=== PATIENT | male | born 1990 | race Caucasian/White ===

== ENCOUNTER 2020-04-06 18:53 | Emergency (ER) | payer BC, SELFPAY ==
--- NOTE | ~2020-04-06 | CT_ITS ---
EXAMINATION: CT abdomen pelvis w con DATE: 04/06/2020 22:08 INDICATION: Abdomen pain TECHNIQUE: Computed tomography (CT) of the abdomen and pelvis was performed without intravenous contr ast. The dose-length product was 693.72 mGy-cm. Automated exposure control and iterative reconstructi on technique were employed. COMPARISON: None. FINDINGS: Lung bases unremarkable. Heart size normal. No significant pleural or pericardial effusion. The liver, spleen, pancreas, adrenal glands and kidneys are unremarkable. Gallbladder is contracted. Nonobstructive bowel gas pattern. No evidence for appendicitis or diverticulitis. No significant vas cular abnormality. No lymphadenopathy. No acute osseous abnormality. There is mild thickening of the distal esophagus, suspicious for esophagitis. IMPRESSION: 1. Mild thickening of the distal esophagus, suspicious for esophagitis. 2: No acute abnormality of the abdomen. Reviewed, dictated and finalized at location A.
[2020-04-06 19:14] VITALS: BP 138/77; PULSE 85; RESP 20; TEMP 37.3; O2SAT 99
[2020-04-06] MEDS: SODIUM CHLORIDE 0.9% IV 1,000 ML 999 ML IV CONT ×2 (19:38→19:40)
[2020-04-06 19:44] LABS: Basophils Absolute Auto 0.1 K/mm3 (0.0-0.1); Basophils Percent Auto 0.8 % (0.2-1.2); Eosinophils Absolute Auto 0.1 K/mm3 (0-0.3); Eosinophils Percent Auto 1.3 % (0-4.4); Hematocrit 46.1 % (42.0-52.0); Hemoglobin 15.8 g/dL (14.0-18.0); Immature Granulocyte Absolute 0.02 K/mm3 (0.00-0.031); Immature Granulocyte Percent A 0.3 % (0-0.5); Lymphocytes Absolute Auto 1.53 K/mm3 (0.9-3.2); Lymphocytes Percent Auto 25.7 % (18.3-44.2); Mean Corpuscular HGB Conc 34.3 g/dl (32-36); Mean Corpuscular Hemoglobin 31.3 pg (26-34); Mean Corpuscular Volume 91.3 fl (80-100); Mean Platelet Volume 10.4 fl (7.4-10.4); Monocytes Absolute Auto 0.9 K/mm3 (0.1-0.6); Monocytes Percent Auto 15.1 % (2.6-8.5); Neutrophils Absolute Auto 3.4 K/mm3 (1.3-6.7); Neutrophils Percent Auto 56.8 % (45.5-73.1); Platelet Count Result 191 k/mm3 (150-375); Red Blood Count 5.05 M/mm3 (4.6-6.20); Red Cell Distribution Width 13.9 % (11.5-14.5)
[2020-04-06 19:56] LABS: Blood Urea Nitrogen 11 mg/dL (9-20); Calcium 8.4 mg/dL (8.4-10.2); Carbon Dioxide 34 mmol/L (22-30); Chloride 95 mmol/L (98-107); Creatine Kinase 77 U/L (55-170); Estimated CRCL calculation 119 ml/min; Estimated Glomerular Filt Rate > 60; Glucose 96 mg/dL (75-110); Magnesium 1.9 mg/dL (1.6-2.3); Sodium 136 mmol/L (137-145)
--- NOTE | 2020-04-06 20:28 | ED.GENADULT ---
HPI - General Adult General Chief complaint: Environmental Exposure <Saul De La Rosa PA-C - Last Filed: 04/07/20 15:47> Stated complaint: N/V MUSCLE CRAMPS, HEAT EXPOSURE <Saul De La Rosa PA-C - Last Filed: 04/07/20 15:47> Time Seen by Provider: 04/06/20 18:59 <Saul De La Rosa PA-C - Last Filed: 04/07/20 15:47> Source: patient <Saul De La Rosa PA-C - Last Filed: 04/07/20 15:47> Mode of arrival: ambulatory <Saul De La Rosa PA-C - Last Filed: 04/07/20 15:47> Limitations: no limitations <Saul De La Rosa PA-C - Last Filed: 04/07/20 15:47> History of Present Illness HPI narrative: Patient is a 29-year-old male who presents with several days duration of chills sweats after working in extreme heat has had some intermittent nausea and vomiting. Has been drinking Pedialyte but continues to work in the heat and has not taken days off. Patient on arrival today notes that his urine became very dark and was concerned for dehydration. Patient denies any URI symptoms. Patient denies any fever chills at this time sick contacts or other complaints. Patient is visiting from out of town while currently working <Saul De La Rosa PA-C - Last Filed: 04/07/20 15:47> Related Data Home medications: Home Medications Medication Instructions Recorded Confirmed No Home Medications 04/07/20 04/07/20 <Saul De La Rosa PA-C - Last Filed: 04/07/20 15:47> Allergies/adverse reactions: Allergies Allergy/AdvReac Type Severity Reaction Status Date / Time No Known Allergies Allergy Verified 04/07/20 15:36 <Saul De La Rosa PA-C - Last Filed: 04/07/20 15:47> Review of Systems Review of Systems: All systems reviewed & are unremarkable except as noted in HPI and below <Saul De La Rosa PA-C - Last Filed: 04/07/20 15:47> [facility] Past Medical History Medical History: Medical History (Updated 04/07/20 @ 17:38 by Saul De La Rosa PA-C) Hepatitis <Saul De La Rosa PA-C - Last Filed: 04/07/20 15:47> Social History Social History: Social History (Updated 04/07/20 @ 15:48 by Saul De La Rosa PA-C) Smoking status: Never smoker Alcohol intake: unknown Gender identity (if verbalized by the patient): Male <Saul De La Rosa PA-C - Last Filed: 04/07/20 15:47> Exam Narrative: Exam Narrative: GENERAL: Well-appearing, well-nourished, and in no acute distress. HEAD: Normocephalic, atraumatic. EYES: PERRLA and EOMI. ENT: Nares clear, no rhinorrhea or epistaxis. Mucous membranes moist. Oropharynx without tonsillar hypertrophy exudate or other lesions. CHEST: Clear to auscultation. No respiratory distress. No wheezes rales or rhonchi HEART: Regular rate and rhythm. No murmur heard. Normal peripheral pulses. ABDOMEN: Soft, nontender, nondistended EXTREMITIES: Normal range of motion. No edema. SKIN: Warm, dry, no rash. NEURO: No focal deficits. Alert and oriented x3. Cranial nerves II through XII grossly intact PSYCH: Normal mood and affect. <Saul De La Rosa PA-C - Last Filed: 04/07/20 15:47> Course Course Emergency Course: Patient in the room in no distress resting comfortably tolerating p.o. intake feeling better after receiving multiple liters of fluid. Patient found to have hepatitis noting history of hepatitis from tattoos in the past while in [place]. Patient notes he has not had treatment was initially thought that the patient had heat exhaustion given the story that he was telling but is more clear that it is likely has hepatitis may be coupled with his heat exposure. Patient will be admitted pending CAT scan which will be followed by my attending Dr. Cuevas <Saul De La Rosa PA-C - Last Filed: 04/07/20 15:47> Consultations Consultation #1: Discussed case with barrel assembler Dr. Stuart who will consult on patient and notes that the patient can stay under his care. <Saul De La Rosa PA-C - Last Filed: 04/07/20 15:47> Date: 03/28
[2020-04-06 20:57] VITALS: BP 125/73; PULSE 83; RESP 20; O2SAT 97
[2020-04-06 21:09] LABS: Add Urine Microscopic? YES; Appearance Urine Clear (Clear); Bacteria Urine Trace /hpf; Bilirubin Urine 2+ (Negative); Blood Urine Negative (Negative); Color Urine Amber (Yellow); Glucose Urine UA Negative (Negative); Ketones Urine Trace mg/dL (Negative); Leukocyte Esterase Ur Negative LEU/UL (Negative); Mucus Urine Heavy /lpf; Nitrate Urine Negative (Negative); Protein Urine 1+ mg/dL (Negative); RBC Urine 0-2 /hpf (0-2); Specific Grav Ur 1.027 (1.001-1.035); Squamous Epithelial Cell Urine Rare /hpf (Few)
--- NOTE | 2020-04-06 21:20 | PC.NURSE ---
Giovani in lab aware of add ons.
[2020-04-06 21:43] LABS: Albumin Level 3.7 g/dL (3.5-5.1); Alkaline Phosphatase 231 U/L (38-126); Bilirubin Direct 4.8 mg/dL (0-0.3); Bilirubin,Total 8.2 mg/dL (0.2-1.3); Lipase 38 U/L (23-300)
[2020-04-06 22:00] LABS: Alanine Aminotransferase > 3750 U/L (4-50); Aspartate Amino Transferase 3312 U/L (17-59)
[2020-04-06 22:37] VITALS: BP 132/102; PULSE 85; RESP 20; O2SAT 97
[2020-04-06 22:46] LABS: Hepatitis B Surface Antigen Negative (Negative)
[2020-04-06 22:52] LABS: HAV RESULT Reactive (Negative); Hepatitis B Core IgM Result Negative (Negative)
[2020-04-06 23:34] LABS: Hepatitis C Virus Antibody Reactive (Negative)
[2020-04-06 23:35] VITALS: BP 138/79; PULSE 80; RESP 19; TEMP 36.8; O2SAT 100
--- NOTE | 2020-04-07 15:47 | ED.GENADULT ---
HPI - General Adult General Chief complaint: Environmental Exposure <Saul De La Rosa PA-C - Last Filed: 04/07/20 17:38> Stated complaint: N/V MUSCLE CRAMPS, HEAT EXPOSURE <Saul De La Rosa PA-C - Last Filed: 04/07/20 17:38> Time Seen by Provider: 04/06/20 18:59 <Saul De La Rosa PA-C - Last Filed: 04/07/20 17:38> Source: patient <Saul De La Rosa PA-C - Last Filed: 04/07/20 17:38> Mode of arrival: ambulatory <Saul De La Rosa PA-C - Last Filed: 04/07/20 17:38> Limitations: no limitations <Saul De La Rosa PA-C - Last Filed: 04/07/20 17:38> History of Present Illness HPI narrative: Patient is a 29-year-old male who presents to emergency department for evaluation after presenting last night found to have hepatitis acutely patient notes history of hepatitis patient went home notes that he has been fine throughout the night without any fevers or vomiting. Patient presents denying any pain and was requested to return for further evaluation patient. Patient on arrival resting comfortably in the room in no distress <Saul De La Rosa PA-C - Last Filed: 04/07/20 17:38> Related Data Home medications: Home Medications Medication Instructions Recorded Confirmed No Home Medications 04/07/20 04/07/20 <Saul De La Rosa PA-C - Last Filed: 04/07/20 17:38> Allergies/adverse reactions: Allergies Allergy/AdvReac Type Severity Reaction Status Date / Time No Known Allergies Allergy Verified 04/07/20 15:36 <Saul De La Rosa PA-C - Last Filed: 04/07/20 17:38> Review of Systems Review of Systems: All systems reviewed & are unremarkable except as noted in HPI and below <Saul De La Rosa PA-C - Last Filed: 04/07/20 17:38> [facility] Past Medical History Medical History: Medical History (Updated 04/07/20 @ 17:38 by Saul De La Rosa PA-C) Hepatitis <Saul De La Rosa PA-C - Last Filed: 04/07/20 17:38> Social History Social History: Social History (Updated 04/07/20 @ 15:48 by Saul De La Rosa PA-C) Smoking status: Never smoker Alcohol intake: unknown Gender identity (if verbalized by the patient): Male <Saul De La Rosa PA-C - Last Filed: 04/07/20 17:38> Exam Narrative: Exam Narrative: GENERAL: Well-appearing, well-nourished, and in no acute distress. HEAD: Normocephalic, atraumatic. EYES: PERRLA and EOMI. ENT: Nares clear, no rhinorrhea or epistaxis. Mucous membranes moist. Oropharynx without tonsillar hypertrophy exudate or other lesions. NECK: Supple. No adenopathy or masses. CHEST: Clear to auscultation. No respiratory distress. No wheezes rales or rhonchi HEART: Regular rate and rhythm. No murmur heard. Normal peripheral pulses. ABDOMEN: Soft, nontender, nondistended EXTREMITIES: Normal range of motion. No edema. SKIN: Warm, dry, no rash. NEURO: No focal deficits. Alert and oriented x3. Cranial nerves II through XII grossly intact. PSYCH: Normal mood and affect. <Saul De La Rosa PA-C - Last Filed: 04/07/20 17:38> Course Course Emergency Course: Patient in the room in no distress aware of case findings treatment plan and diagnosis <JOSELINE Flores Last Filed: 04/07/20 17:38> Consultations Consultation #1: Discussed case with hospitalist and chipping machine operator who have agreed to accept the patient with no further interventions at this time <Saul De La Rosa PA-C - Last Filed: 04/07/20 17:38> Date: 04/07/20 <JOSELINE Flores Last Filed: 04/07/20 17:38> Time: 17:38 <Saul De La Rosa PA-C - Last Filed: 04/07/20 17:38> Additional Consultation(s): <JOSELINE Flores Last Filed: 04/07/20 17:38> Vital Signs Vital signs: Vital Signs Temperature 99.1 F 04/06/20 19:14 Pulse Rate 85 04/06/20 19:14 Respiratory Rate 20 04/06/20 19:14 Blood Pressure 138/77 04/06/20 19:14 Pulse Oximetry 99 04/06/20 19:14 Temperature 98.3 F 04/06/20 23:35 Pul
[2020-04-07 17:05] LABS: Basophils Absolute Auto 0.1 K/mm3 (0.0-0.1); Basophils Percent Auto 0.8 % (0.2-1.2); Eosinophils Absolute Auto 0.1 K/mm3 (0-0.3); Eosinophils Percent Auto 0.9 % (0-4.4); Hematocrit 47.4 % (42.0-52.0); Immature Granulocyte Absolute 0.03 K/mm3 (0.00-0.031); Immature Granulocyte Percent A 0.5 % (0-0.5); Lymphocytes Absolute Auto 1.34 K/mm3 (0.9-3.2); Lymphocytes Percent Auto 20.8 % (18.3-44.2); Mean Corpuscular HGB Conc 33.8 g/dl (32-36); Mean Corpuscular Hemoglobin 31.1 pg (26-34); Mean Corpuscular Volume 92.2 fl (80-100); Monocytes Absolute Auto 0.9 K/mm3 (0.1-0.6); Neutrophils Absolute Auto 4.1 K/mm3 (1.3-6.7); Platelet Count Result 225 k/mm3 (150-375); Red Blood Count 5.14 M/mm3 (4.6-6.20); White Blood Count 6.5 K/mm3 (4.5-10.0)
[2020-04-07 17:19] LABS: Albumin Level 3.6 g/dL (3.5-5.1); Alkaline Phosphatase 203 U/L (38-126); Bilirubin,Total 9.2 mg/dL (0.2-1.3); Blood Urea Nitrogen 9 mg/dL (9-20); Calcium 7.8 mg/dL (8.4-10.2); Carbon Dioxide 30 mmol/L (22-30); Chloride 99 mmol/L (98-107); Estimated CRCL calculation 147 ml/min; Estimated Glomerular Filt Rate > 60; Glucose 95 mg/dL (75-110); Lipase 53 U/L (23-300); Potassium 4.2 mmol/L (3.4-5.0); Sodium 135 mmol/L (137-145)
[2020-04-07 17:49] LABS: Alanine Aminotransferase > 5000 U/L (4-50); Aspartate Amino Transferase 3565 U/L (17-59)
[2020-04-08 08:26] LABS: Basophils Percent Auto 0.8 % (0.2-1.2); Eosinophils Absolute Auto 0.1 K/mm3 (0-0.3); Eosinophils Percent Auto 1.9 % (0-4.4); Hematocrit 45.2 % (42.0-52.0); Hemoglobin 15.2 g/dL (14.0-18.0); Immature Granulocyte Absolute 0.02 K/mm3 (0.00-0.031); Immature Granulocyte Percent A 0.4 % (0-0.5); Lymphocytes Absolute Auto 1.37 K/mm3 (0.9-3.2); Lymphocytes Percent Auto 25.8 % (18.3-44.2); Mean Corpuscular HGB Conc 33.6 g/dl (32-36); Mean Corpuscular Hemoglobin 30.9 pg (26-34); Mean Corpuscular Volume 91.9 fl (80-100); Mean Platelet Volume 10.3 fl (7.4-10.4); Monocytes Percent Auto 17.9 % (2.6-8.5); Neutrophils Absolute Auto 2.8 K/mm3 (1.3-6.7); Neutrophils Percent Auto 53.2 % (45.5-73.1); Platelet Count Result 197 k/mm3 (150-375); Red Blood Count 4.92 M/mm3 (4.6-6.20); Red Cell Distribution Width 14.2 % (11.5-14.5); White Blood Count 5.3 K/mm3 (4.5-10.0)
[2020-04-14 19:41] LABS: Hepatitis C RNA, Quant PCR 17 IU/mL
== END 2020-04-06 23:36 | disposition home or self-care (01) ==
PROVIDERS: Emergency Medicine Emergency Medical Services; Emergency Provider Emergency Medicine
DX: B15.9 Hepatitis A without hepatic coma (principal)
CPT/HCPCS: 36415; 74177; 80048; 80053; 80074; 80076; 81001; 82550; 83690; 83735; 85025; 87086; 87522; 96361; 96374; 99284; J0131; J7030; Q9967

== ENCOUNTER 2020-04-07 15:03 | Inpatient (IN) | payer BC, SELFPAY ==
--- NOTE | ~2020-04-07 | US_ITS ---
EXAMINATION: US right upper quadrant DATE: 04/08/2020 09:41 INDICATION: Hepatitis. TECHNIQUE: Multiple grayscale and Doppler ultrasound images of the abdomen were obtained. COMPARISON: CT abdomen and pelvis 04/06/2020 FINDINGS: The visualized portions of the head and body of the pancreas are normal. The liver is desire l without focal lesion. No liver surface nodularity. There is normal flow in main portal vein. The ga llbladder is contracted and contains sludge. No gallstones or sonographic Batista sign. The common silas t is normal and measures 3 mm. IMPRESSION: 1. Normal liver. Reviewed, dictated and finalized at location A. IMPRESSION: 1. Normal liver.
[2020-04-07 15:32] VITALS: BP 134/85; PULSE 80; RESP 18; TEMP 37.1; O2SAT 98
--- NOTE | 2020-04-07 15:49 | ER_ITS ---
This report was moved to the correct visit, [id number] on 04/10/2020. Original report was signed by Saul De La Rosa PA-C on 04/07/20 1738 and Nargis Cuevas MD on 04/07/20 1906. HPI - General Adult General Chief complaint: Environmental Exposure <Saul De La Rosa PA-C - Last Filed: 04/07/20 17:38> Stated complaint: N/V MUSCLE CRAMPS, HEAT EXPOSURE <Saul De La Rosa PA-C - Last Filed: 04/07/20 17:38> Time Seen by Provider: 04/06/20 18:59 <aSul De La Rosa PA-C - Last Filed: 04/07/20 17:38> Source: patient <JOSELINE Flores Last Filed: 04/07/20 17:38> Mode of arrival: ambulatory <JOSELINE Flores Last Filed: 04/07/20 17:38> Limitations: no limitations <JOSELINE Flores Last Filed: 04/07/20 17:38> History of Present Illness HPI narrative: Patient is a 29-year-old male who presents to emergency department for evaluation after presenting last night found to have hepatitis acutely patient notes history of hepatitis patient went home notes that he has been fine throughout the night without any fevers or vomiting. Patient presents denying any pain and was requested to return for further evaluation patient. Patient on arrival resting comfortably in the room in no distress <Saul De La Rosa PA-C - Last Filed: 04/07/20 17:38> Related Data Home medications: Home Medications Medication Instructions Recorded Confirmed No Home Medications 04/07/20 04/07/20 <Saul De La Rosa PA-C - Last Filed: 04/07/20 17:38> Allergies/adverse reactions: Allergies Allergy/AdvReac Type Severity Reaction Status Date / Time No Known Allergies Allergy Verified 04/07/20 15:36 <JOSELINE Flores Last Filed: 04/07/20 17:38> Review of Systems Review of Systems: All systems reviewed & are unremarkable except as noted in HPI and below <JOSELINE Flores Last Filed: 04/07/20 17:38> [facility] Past Medical History Medical History: Medical History (Updated 04/07/20 @ 17:38 by Saul De La Rosa PA-C) Hepatitis <Saul De La Rosa PA-C - Last Filed: 04/07/20 17:38> Social History Social History: Social History (Updated 04/07/20 @ 15:48 by Saul De La Rosa PA-C) Smoking status: Never smoker Alcohol intake: unknown Gender identity (if verbalized by the patient): Male <Saul De La Rosa PA-C - Last Filed: 04/07/20 17:38> Exam Narrative: Exam Narrative: GENERAL: Well-appearing, well-nourished, and in no acute distress. HEAD: Normocephalic, atraumatic. EYES: PERRLA and EOMI. ENT: Nares clear, no rhinorrhea or epistaxis. Mucous membranes moist. Oropharynx without tonsillar hypertrophy exudate or other lesions. NECK: Supple. No adenopathy or masses. CHEST: Clear to auscultation. No respiratory distress. No wheezes rales or rhonchi HEART: Regular rate and rhythm. No murmur heard. Normal peripheral pulses. ABDOMEN: Soft, nontender, nondistended EXTREMITIES: Normal range of motion. No edema. SKIN: Warm, dry, no rash. NEURO: No focal deficits. Alert and oriented x3. Cranial nerves II through XII grossly intact. PSYCH: Normal mood and affect. <Saul De La Rosa PA-C - Last Filed: 04/07/20 17:38> Course Course Emergency Course: Patient in the room in no distress aware of case findings treatment plan and diagnosis <Saul De La Rosa PA-C - Last Filed: 04/07/20 17:38> Consultations Consultation #1: Discussed case with hospitalist and low voltage technician who have agreed to accept the patient with no further interventions at this time <Saul De La Rosa PA-C - Last Filed: 04/07/20 17:38> Date: 04/07/20 <GAGANDEEP Flores
[2020-04-07 17:20] VITALS: BP 121/77; PULSE 75; RESP 18; O2SAT 98
[2020-04-07 18:39] VITALS: BP 128/81; PULSE 76; RESP 20; O2SAT 98
[2020-04-07 18:55] VITALS: BP 121/77; PULSE 75; RESP 18; O2SAT 98
--- NOTE | 2020-04-07 19:00 | PM.IMHP ---
H&P: HPI History of Present Illness Chief complaint: Hepatitis. Narrative: Ezequiel Glasgow is a 29-year-old male who return to the emergency department today for admission and further evaluation of hepatitis. He was seen in the emergency department yesterday afternoon he presented several days duration of chills, sweats, nausea, and vomiting. Initially he thought he was dehydrated due to working outside in the heat however he was found to have significantly elevated transaminases as well as a a reactive hepatitis-C antibody screen and a reactive hepatitis a IgM antibody. He did receive IV fluid rehydration and felt somewhat better before being discharged. Unfortunately he continues to have anorexia, nausea, and vomiting shortly after any oral intake. He has also been feeling a bit constipated and bloated. He has also been taking Pepto-Bismol and reports dark stools due to such. He was in [facility] for over 2 years and he was released in May 2019. While in [facility] he was told that his hepatitis C antibody was reactive however months thereafter he was told he did not have an active infection. He is uncertain if he has ever been vaccinated for hepatitis A and he is unaware if he has been around anybody with active hepatitis A. He denies eating raw or uncooked meat and fish. He has not been sexually active for over a year. His last tattoo was over a year and a half ago. He travels frequently around the region for his job. He has not had significant abdominal pain. No hematemesis. Review of Systems Review of Systems: Narrative: Twelve systems were reviewed with pertinent positives and negatives as per HPI. He has felt a bit weak due to dehydration. He has noticed that his urine is very dark and that has been that way for almost a week. No hematuria or dysuria. Except as documented, all other systems were reviewed and are negative. [facility] Past Medical History Medical History (Updated 04/07/20 @ 21:41 by Shannon Benjamin PA-C) Nicotine dependence Surgical History Surgical History (Updated 04/07/20 @ 21:41 by Shannon Benjamin PA-C) History of tonsillectomy Family History Family History Mother Acute myocardial infarction Mother Lupus Father Hypertension Diabetes mellitus Social History Social History (Updated 04/07/20 @ 21:42 by Shannon Benjamin PA-C) Social History: Decision maker: Caryn Skelton, mother. Code status: Full code. Smoking packs per day: 1 Smoking cigarettes per day: 20.0 Smoking status: Current every day smoker Tobacco type: cigarettes Additional smoking assessment comments: Began smoking at the age of 14. Alcohol intake: current Drinks per week: 1 Alcohol use details: Will occasionally binge drink every few months. Substance use type: marijuana Other substance usage details: Methamphetamine use in the past, clean for nearly 3 years. Additional living arrangements comments: Lives in [place], [place]. 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 Gender identity (if verbalized by the patient): Male Spiritual care concerns: No Meds Home Medications and Allergies Home Medications Medication Instructions Recorded Confirmed Type No Home Medications 04/07/20 04/07/20 History Allergies Allergy/AdvReac Type Severity Reaction Status Date / Time aspartame Allergy Headache Verified 04/07/20 19:44 cefaclor [From Ceclor] Allergy Rash Verified 04/07/20 19:46 Penicillins Allergy Rash Verified 04/07/20 19:44 Vital Signs Vital Signs - 24 hr 04/07/20 15:32 04/07/20 17:20 04/07/20 18:39 Temperature 98.8 F Pulse Rate 80 75 76 Respiratory Rate 18 18 20 Blood Pressure 134/85 121/77 128/81 Pulse Oximetry 98 98 98 04/07/20 18:55 Temperature Pulse Rate 75 Respiratory Rate 18 Blood Pressure 121/77 Pulse Oximetry 98
[2020-04-07 19:25] VITALS: BP 137/73; PULSE 65; RESP 18; TEMP 36.8; O2SAT 98; BMI 27.7
--- NOTE | 2020-04-07 19:37 | ADMGEN ---
This patient, Ezequiel Glasgow, was admitted to 2 Medical Room 247-. Patient/family oriented to hospital policies and general routines including ID bracelet, bed and alarms, visiting hours, pain management, procedures, bathroom and other care routines, personal items, smoking policy, room service/diet, and visiting hours. Valuables list has been completed. Information on how to activate the Rapid Response Team has been discussed. Patient/Family are encouraged to report perceived risks to care and to ask questions if they do not understand what they are told or what they should do.
--- NOTE | 2020-04-07 19:38 | PC.NURSE ---
Pt has arrived to room with no information in chart. No orders. Unable to read ER note at this time. IT is aware and working on problem
[2020-04-07 22:03] LABS: INR 1.6; Prothrombin Time 18.3 Seconds (11.1-14.7)
[2020-04-07 22:04] LABS: Partial Thromboplastin Time 31.7 SECONDS (22.3-36.8)
[2020-04-07 22:21] LABS: Acetaminophen < 10 ug/mL (10-30); Salicylate < 1.0 mg/dL (2-20)
[2020-04-07] MEDS: SODIUM CHLORIDE 0.9% IV 1,000 ML 100 ML IV CONT (22:35)
[2020-04-07] MEDS: ONDANSETRON INJ 4 MG/2 ML VIAL IV PUSH (22:35)
[2020-04-07 23:10] LABS: Amphetamine Screen Urine Negative (Negative); Barbiturate Screen Urine Negative (Negative); Benzodiazepines Screen Urine Negative (Negative); Cannabinoid Screen Urine Positive (Negative); Cocaine Screen Urine Negative (Negative); Methadone Screen Urine Negative (Negative); Opiate Screen Urine Negative (Negative); Phencyclidine Screen Urine Negative (Negative)
[2020-04-08] MEDS: FAMOTIDINE 20 MG/2 ML VIAL IV PUSH ×2 (01:02→09:33)
[2020-04-08 05:26] VITALS: BP 131/75; PULSE 62; RESP 16; TEMP 36.6; O2SAT 99
[2020-04-08 07:42] VITALS: PULSE 62; RESP 16; O2SAT 99
[2020-04-08 08:55] LABS: Albumin Level 3.2 g/dL (3.5-5.1); Alkaline Phosphatase 184 U/L (38-126); Bilirubin,Total 9.3 mg/dL (0.2-1.3); Blood Urea Nitrogen 8 mg/dL (9-20); Calcium 7.6 mg/dL (8.4-10.2); Carbon Dioxide 29 mmol/L (22-30); Chloride 101 mmol/L (98-107); Estimated CRCL calculation 162 ml/min; Estimated Glomerular Filt Rate > 60; Glucose 83 mg/dL (75-110); Potassium 4.2 mmol/L (3.4-5.0); Sodium 135 mmol/L (137-145)
--- NOTE | 2020-04-08 09:19 | PM.IMPN ---
Progress Note: A&P Assessment and Plan (1) Hepatitis: Code(s): K75.9 - Inflammatory liver disease, unspecified Status: Acute Assessment and Plan: He was reactive for hepatitis-A and hepatitis C antibodies. He has remained afebrile. Right upper quadrant ultrasound has been performed and will await results Hep C RNA by PCR pending. Dr. Nguyen consulted and his input is appreciated. Continue supportive care and gentle IV fluids Resume regular diet (2) Nicotine dependence: Qualifiers: Nicotine product type: cigarettes Substance use status: uncomplicated Qualified Code(s): F17.210 - Nicotine dependence, cigarettes, uncomplicated Code(s): F17.200 - Nicotine dependence, unspecified, uncomplicated Status: Acute Assessment and Plan: He smokes 1 ppd He declines the need for a nicotine patch. Continue to encourage smoking cessation. Subjective Date/time seen: 04/08/20 09:19 Interval history: Date of service: 04/08/2020 He is doing well today. He was previously complaining of fever and chills which have improved. He vomited last night but has not had any emesis today. He denies feeling nausea, and in fact states that he is feeling hungry and is ready to eat. He has not eaten much of anything the past few days due to difficulty keeping down food and water. He stills feels fatigued and occasionally a little lightheaded. He denies abdominal pain, cramping, bloating, diarrhea, or constipation. He does not feel that his skin or eyes are yellowed in color. Review of Systems Review of Systems: Narrative: A 12 point review of systems was reviewed with pertinent positives and negatives as per HPI. Exam Narrative: Exam Narrative: Mr. Glasgow is examined alone today. He is a well-nourished 29 year old male who is lying supine in bed. He appears comfortable and is in NARD. HR 62, BP 131/75, RR 16, T 97.9, 99% on room air Neuro: awake, alert and oriented x4, speech clear, no focal neuro deficits noted HEENMT: normocephalic, atraumatic, EOMI, scleral icterus, moist oral mucosa Neck: supple, no lymphadenopathy Respiratory: clear to auscultation bilaterally, normal respiratory effort without accessory muscle use Cardio: regular rate, regular rhythm, normal S1 and S2 Abdomen: normal to inspection, nondistended, normoactive bowel sounds, soft, nontender to palpation, no rigidity or guarding Extremities: BLE without edema, erythema, or tenderness to palpation, dorsal pedis pulses palpable bilaterally Skin: mildly jaundiced, no rashes or lesions, warm and dry Psych: appropriate mood and affect, judgement and insight intact Objective Data Vital Signs Vital Signs: Vital Signs - 24 hr 04/07/20 15:32 04/07/20 17:20 04/07/20 18:39 Temperature 98.8 F Pulse Rate 80 75 76 Respiratory Rate 18 18 20 Blood Pressure 134/85 121/77 128/81 Pulse Oximetry 98 98 98 04/07/20 18:55 04/07/20 19:25 04/08/20 05:26 Temperature 98.3 F 97.9 F Pulse Rate 75 65 62 Respiratory Rate 18 18 16 Blood Pressure 121/77 137/73 131/75 Pulse Oximetry 98 98 99 04/08/20 07:42 Temperature Pulse Rate 62 Respiratory Rate 16 Blood Pressure Pulse Oximetry 99 Intake/Output Intake/Output: Intake & Output 04/05/20 04/06/20 04/07/20 04/08/20 23:59 23:59 23:59 23:59 Intake Total 400 Output Total 350 Balance 50 Meds/Results Medications: Active Medications Generic Name Dose Route Start Last Admin Trade Name Freq PRN Reason Stop Dose Admin Famotidine 20 mg 04/08/20 09:00 Pepcid Iv IV PUSH Q12HR FROYLAN Sodium Chloride 1,000 mls @ 100 mls/hr 04/07/20 21:55 04/07/20 22:35 Normal Saline Iv IV CONT 100 mls/hr .Q10H FROYLAN Administration Ondansetron HCl 4 mg 04/07/20 21:52 04/07/20 22:35 Zofran Inj IV PUSH 4 mg Q6H PRN Administration Nausea And Vomiting Labs Labs: Laboratory Results - last 24 hr 04/07/20 04/07/20 04/07/20 16
[2020-04-08 09:31] LABS: Aspartate Amino Transferase 3705 U/L (17-59)
[2020-04-08] MEDS: SODIUM CHLORIDE 0.9% IV 1,000 ML 100 ML IV CONT (09:33)
[2020-04-08 10:00] LABS: Alanine Aminotransferase > 5000 U/L (4-50)
--- NOTE | 2020-04-08 13:26 | WPDGICN ---
Assessment and Plan Assessment and plan (1) Hepatitis A: Code(s): B15.9 - Hepatitis A without hepatic coma Status: Acute Assessment and Plan: symptoms and labs consistent with acute hepatitis A, he is already feeling better and tolerating diet, no more vomiting, no confusion or abdominal pain, no more fever discussed with him at length of natural history of this infection, may last few weeks but it is not chronic. Will need to practice good hygiene, do not share personal items, have own toilet, etc also hcv rna is pending (he was told in the past that was non-reactive) will need labs including inr in 1 week if he goes home abdominal ultrasound was normal he also eventually will need vaccine for HBV (he is not immune) (2) Nausea & vomiting: Code(s): R11.2 - Nausea with vomiting, unspecified Status: Acute Assessment and Plan: resolved and tolerating diet (3) Esophagitis: Code(s): K20.9 - Esophagitis, unspecified Status: Acute Assessment and Plan: found by ct scan, give ppi daily for a month GI Consult Note Consult date/time: 04/08/20 13:26 Reason for consult: hepatitis HPI: Ezequiel Glasgow is a 29 year old male with no major medical problems other than been in [facility] for 2 years and released last year, was told that had reactive HCV but apparently confirmatory test with RNA was negative. He came to ER with almost a week of chills, sweats, lowe grade fever and nausea with vomiting. 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 He also noted yellow sclerae and dark urine, finally came to ER and was found to have significant elevated liver enzymes consistent with hepatitis. Hepatitis A is positive. He is tolerating diet now, feeling better, less nausea. He does not drink alcohol, he quit using methamphetamine 3 years ago, uses marihuana. He denies sick contacts. He took tylenol about 5 days ago but only for 1 day and more more than 2g (had teeth pain) Review of Systems Constitutional: Constitutional: Reports body ache(s), Reports chills, Reports fever(s), Reports lethargy and Reports malaise Eyes: Eyes: Denies blurry vision ENT: Reports Normal hearing present Cardiovascular: Cardiovascular: Denies chest pain Respiratory: Respiratory: Denies dyspnea Gastrointestinal: Gastrointestinal: Reports nausea and Reports vomiting Genitourinary: Genitourinary: Denies urinary urgency Musculoskeletal: Musculoskeletal: Reports myalgias and Denies neck pain Integumentary/Breasts: Skin/Breast: Denies rash Neurologic: Denies confusion Psychiatric: Psychiatric: Denies behavioral changes Hematologic/Lymphatic: Hematologic/Lymphatic: Denies easy bleeding PMFSH Past Medical History Medical History (Updated 04/08/20 @ 13:39 by Tyson Nguyen MD) Esophagitis Hepatitis A Nicotine dependence Surgical History Surgical History (Updated 04/07/20 @ 21:41 by Shannon Benjamin PA-C) History of tonsillectomy Family History Family History Mother Acute myocardial infarction Mother Lupus Father Hypertension Diabetes mellitus Social History Social History (Updated 04/07/20 @ 21:42 by Shannon Benjamin PA-C) Social History: Decision maker: Caryn Skelton, mother. Code status: Full code. Smoking packs per day: 1 Smoking cigarettes per day: 20.0 Smoking status: Current every day smoker Tobacco type: cigarettes Additional smoking assessment comments: Began smoking at the age of 14. Alcohol intake: current Drinks per week: 1 Alcohol use details: Will occasionally binge drink every few months. Substance use type: marijuana Other substance usage details: Methamphetamine use in the past, clean for nearly
[2020-04-08 14:00] VITALS: BP 135/74; PULSE 65; RESP 16; TEMP 36.6; O2SAT 98
--- NOTE | 2020-04-08 14:18 | PM.DS ---
DS: Admitting Diagnosis Admitting Diagnosis Admitting Diagnosis: Inflammatory liver disease, unspecified DS: Discharge Diagnosis Discharge Diagnosis (1) Hepatitis: Code(s): K75.9 - Inflammatory liver disease, unspecified Status: Acute Assessment and Plan: He was reactive for hepatitis-A IgM antibody. He also had a reactive hepatitis C screening, however this was assessed months ago and he was told he did not have an active infection. (2) Nicotine dependence: Qualifiers: Nicotine product type: cigarettes Substance use status: uncomplicated Qualified Code(s): F17.210 - Nicotine dependence, cigarettes, uncomplicated Code(s): F17.200 - Nicotine dependence, unspecified, uncomplicated Status: Acute Assessment and Plan: He smokes 1 ppd. I educated him on smoking cessation for 3 minutes. He is not interested in quitting smoking at this time. He declined a nicotine patch during his stay. (3) Esophagitis: Code(s): K20.9 - Esophagitis, unspecified Status: Acute Assessment and Plan: Evident on CT scan. He will continue omeprazole daily for a month. He will follow-up with Dr. Cueva as available in approximately 1 week. DS: Summary Hospital Course Reason for hospitalization: Hepatitis Hospital Course: Date of admission: 04/07/2020 Date of discharge: 04/08/2020 Ezequiel Glasgow is a 29-year-old male with a past medical history of nicotine dependence who presented to the emergency department on both 04/06/2020 and 04/07/2020 with complaints of fevers, chills, and sweats for several days with intermittent nausea and vomiting. He was concerned he was dehydrated as he had been working outdoors in the heat. He had poor oral intake. He was found to have a reactive hepatitis A IgM antibody and a reactive hepatitis-C antibody. He is uncertain if he had ever been vaccinated for hepatitis-A or if he has been in contact with anybody who had hepatitis-A. He denied eating raw or uncooked meat or fish. He has not been sexually active for over a year. His last tattoo was over a year and a half ago. He has not used IV drugs in several years. He denies taking acetaminophen. He does travel frequently around the region for his job. It is unclear how he was exposed to hepatitis-A. At presentation, he was afebrile with VSS, WBC 6.5, no electrolyte abnormalities, total bili 8.2, direct bili 4.8, AST 3312, ALT >3750, ALP 231, CK 77, albumin 3.7, and INR 1.6. He had a CT scan which revealed an unremarkable abdomen however did show evidence of mild distal esophageal thickening, consistent with esophagitis. He was admitted to the hospitalist service and was seen in consultation by Gastroenterology. He had a right upper quadrant ultrasound which showed a normal liver. His LFTs were monitored. He was rehydrated with IV fluids. He began feeling much better, and he was able to tolerate oral intake. Given this improvement, he was determined to no longer require inpatient care and felt stable to continue supportive care at home. We discussed the importance of staying well hydrated, as well as measures to prevent the spread of hepatitis-A as he still has an active infection. He will obtain outpatient labs in 1 week and is scheduled to follow-up with Dr. Cueva, provided he is still in the area. It is difficult as he travels frequently for work to set him up for follow-up appointments, however he believes he will still be in this area within the next week. I stressed to him that if he does travel elsewhere, he needs to follow-up with a provider in 1-2 weeks for follow-up of his labs, and that he should call Dr. Cueva office. He was anxious to return home and all of his questions were answered. He was discharged home in hemodynamically stable condition on the afternoon of 04/08/2020. Time spent discussing smoking cessation with patient: 3 to 10 minutes Status at Discharge Functional statu
== END 2020-04-08 16:30 | disposition home or self-care (01) | DRG 443 ==
LOC: ANHED 18:29 → ANH2MED 19:43
PROVIDERS: Physician Assistant; Admitting Provider Family Medicine; Emergency Provider Emergency Medicine; Visit Provider Physician Assistant
DX: B15.9 Hepatitis A without hepatic coma (principal); F17.200 Nicotine dependence, unspecified, uncomplicated; K20.9 Esophagitis, unspecified
CPT/HCPCS: 36415; 76705; 80053; 80307; 85610; 85730; 99285; J2405; J7030